=== PATIENT | male | born 1960 | race Caucasian/White ===

== ENCOUNTER 2018-09-28 09:35 | Day surgery (SDC) | payer OTHER ==
[~2018-09-28] VITALS: Ht 182.9 cm; Wt 81.4 kg
[2018-09-28 10:25] VITALS: Ht 182.9 cm; Wt 81.4 kg
[2018-09-28] MEDS ORDERED: TAMS-14 PO (10:33)
[2018-09-28] MEDS ORDERED: FENTAnyl 50 MCG/ML VIAL ONE (11:35)
[2018-09-28] MEDS ORDERED: MIDAZOLAM 1 MG/ML 2 ML INJ ONE ×3 (11:36)
[2018-09-28 11:56] VITALS: BP 107/58; PULSE 63; RESP 25
== END 2018-09-28 12:16 | disposition home or self-care (01) ==
LOC: GIL 09:35
PROVIDERS: ATTEND Internal Medicine Gastroenterology
DX: Z12.11 Encounter for screening for malignant neoplasm of colon (principal); K64.8 Other hemorrhoids
CPT/HCPCS: 45380; 88305; J2250; J3010; Z7610